=== PATIENT | female | born 1975 | race Hispanic/Latino ===

== ENCOUNTER 2017-09-09 16:28 | Observation (INO) | payer OTHER ==
[~2017-09-09] VITALS: Ht 165.1 cm; Wt 124.3 kg
[~2017-09-09 16:28] MED LIST: IBUP-2077 PO
[2017-09-09 17:29] LABS: APPEARANCE,URINE Clear (CLEAR); BILIRUBIN,URINE Negative (NEGATIVE); COLOR,URINE Yellow (YELLOW); GLUCOSE, URINE (UA) Negative (NEGATIVE); KETONES,URINE Negative (NEGATIVE); LEUKOCYTE ESTERASE ,URINE Small (NEGATIVE); NITRATE,URINE Negative (NEGATIVE); OCCULT BLOOD,URINE Negative (NEGATIVE); PH,URINE 7.5 (5.0-8.0); PROTEIN,URINE Negative (NEGATIVE); UROBILINOGEN,URINE 0.2 mg/dL (0.2-1.0)
[2017-09-09 17:29] LABS: HEMATOCRIT 38.3 % (36-48); MEAN CORPUSCULAR HEMOGLOBIN 27.1 pg (27.0-33.0); MEAN CORPUSCULAR HGB CONC 33.7 g/dL (32.0-36.0); MEAN CORPUSCULAR VOLUME 80.5 fL (79-99); PLATELET COUNT (AUTO) 232 K/uL (130-400); RED BLOOD CELL COUNT(AUTO) 4.76 MIL/uL (4.00-5.50); RED CELL DISTRIBUTION WIDTH 17.2 % (11.0-15.5); WHITE BLOOD COUNT (AUTO) 9.4 K/uL (4.8-10.8)
[2017-09-09 17:38] LABS: CREATININE 0.6 mg/dL (0.5-1.5); INR 0.89 (0.85-1.15); PARTIAL THROMBOPLASTIN TIME 31.7 SEC (26.3-35.5); PROTHROMBIN TIME 9.4 SEC (9.6-11.6)
[2017-09-09 17:42] LABS: ALBUMIN 2.8 g/dL (3.5-5.0); BILIRUBIN,TOTAL 0.3 mg/dL (0.2-1.0); TOTAL PROTEIN, SERUM 8.4 g/dL (6.0-8.3); URIC ACID 3.2 mg/dL (2.6-7.2)
[2017-09-09] MEDS: LACTATED RINGERS 1000ML 1,000 ML IV PRN ×2 (17:52→23:51)
[2017-09-09 18:03] VITALS: BP 132/93
[2017-09-09 18:05] LABS: RBC,URINE 0-1 /HPF (0-1)
[2017-09-09 18:06] LABS: BACTERIA,URINE Few /HPF (None Seen); SQUAMOUS EPITHELIAL CELL,UR Few /HPF (0-2)
[2017-09-09] MEDS: CELESTONE SOLUSPAN 6 MG/ML 5ML VIAL IM SCH (19:21)
[2017-09-10] MEDS ORDERED: ENOXAPARIN SODIUM 60 MG/0.6 ML SQ SCH (09:15)
[2017-09-10] MEDS ORDERED: PRENATAL VITAMIN RX TABLET PO SCH (09:15)
[2017-09-10] MEDS ORDERED: LABETALOL HCL 100 MG TABLET ONE (10:07)
[2017-09-10] MEDS ORDERED: ENOXAPARIN SODIUM 40 MG/0.4 ML SYRINGE SQ SCH (10:15)
[2017-09-10] MEDS: CELESTONE SOLUSPAN 6 MG/ML 5ML VIAL IM SCH (17:25)
[2017-09-10 18:21] LABS: COLLECTION PERIOD,URINE 24 HR; TOTAL VOLUME 24HRS,URINE 1900 mL
[2017-09-10 18:26] LABS: TPROTEIN TIMED,URINE 16 mg/dL; TPROTEIN U,24HR CALC 304 mg/24HR (0-165)
[2017-09-10] MEDS ORDERED: LABETALOL HCL 100 MG TABLET PO SCH (21:00)
[2017-09-11 10:22] LABS: HEPATITIS Bs ANTIGEN SCREEN P Negative (Negative)
== END 2017-09-10 17:50 | disposition home or self-care (01) ==
LOC: LDH 16:28 → WSH 23:20
PROVIDERS: ADMIT Obstetrics & Gynecology; ATTEND Obstetrics & Gynecology
DX: O13.3 Gestational [pregnancy-induced] hypertension without significant proteinuria, third trimester (principal); O24.419 Gestational diabetes mellitus in pregnancy, unspecified control; Z3A.31 31 weeks gestation of pregnancy
CPT/HCPCS: 36415; 80053; 81001; 84156; 84550; 85027; 85384; 85610; 85730; 86592; 86850; 86900; 86901; 87340; 96360; 96361 ×5; 96372 ×2; G0378 ×26; J0702 ×3; J1650; J7120

== ENCOUNTER 2017-09-30 17:33 | Observation (INO) | payer OTHER ==
[~2017-09-30] VITALS: Ht 165.1 cm; Wt 128.8 kg
[2017-09-30] MEDS ORDERED: LACTATED RINGERS 1000ML 1,000 ML IV PRN (18:04)
[2017-09-30 18:13] LABS: HEMATOCRIT 33.3 % (36-48); MEAN CORPUSCULAR HEMOGLOBIN 27.4 pg (27.0-33.0); MEAN CORPUSCULAR HGB CONC 34.1 g/dL (32.0-36.0); MEAN CORPUSCULAR VOLUME 80.3 fL (79-99); PLATELET COUNT (AUTO) 188 K/uL (130-400); RED BLOOD CELL COUNT(AUTO) 4.14 MIL/uL (4.00-5.50); RED CELL DISTRIBUTION WIDTH 17.2 % (11.0-15.5); WHITE BLOOD COUNT (AUTO) 8.2 K/uL (4.8-10.8)
[2017-09-30 18:14] LABS: APPEARANCE,URINE Clear (CLEAR); BILIRUBIN,URINE Negative (NEGATIVE); COLOR,URINE Yellow (YELLOW); GLUCOSE, URINE (UA) Negative (NEGATIVE); KETONES,URINE Negative (NEGATIVE); LEUKOCYTE ESTERASE ,URINE Small (NEGATIVE); NITRATE,URINE Negative (NEGATIVE); OCCULT BLOOD,URINE Negative (NEGATIVE); PH,URINE 6.5 (5.0-8.0); PROTEIN,URINE Negative (NEGATIVE)
[2017-09-30 18:24] LABS: CREATININE 0.6 mg/dL (0.5-1.5); INR 0.87 (0.85-1.15); PARTIAL THROMBOPLASTIN TIME 29.6 SEC (26.3-35.5); POTASSIUM 3.8 mmol/L (3.5-5.1); PROTHROMBIN TIME 9.2 SEC (9.6-11.6)
[2017-09-30 18:28] LABS: ALBUMIN 2.5 g/dL (3.5-5.0); BILIRUBIN,TOTAL 0.3 mg/dL (0.2-1.0); TOTAL PROTEIN, SERUM 7.3 g/dL (6.0-8.3); URIC ACID 3.9 mg/dL (2.6-7.2)
[2017-09-30 19:20] LABS: BACTERIA,URINE Few /HPF (None Seen); RBC,URINE 0-1 /HPF (0-1)
[2017-10-02 08:20] LABS: HEPATITIS Bs ANTIGEN SCREEN P Negative (Negative)
== END 2017-09-30 21:03 | disposition home or self-care (01) ==
LOC: LDH 17:33
PROVIDERS: ADMIT Obstetrics & Gynecology; ATTEND Obstetrics & Gynecology
DX: O22.43 Hemorrhoids in pregnancy, third trimester (principal); O26.893 Other specified pregnancy related conditions, third trimester; R06.02 Shortness of breath; R05 Cough; Z86.32 Personal history of gestational diabetes; Z3A.35 35 weeks gestation of pregnancy
CPT/HCPCS: 36415; 76805; 80053; 81001; 84550; 85027; 85384; 85610; 85730; 86592; 86850; 86900; 86901; 87340; 96360; 96361; G0378

== ENCOUNTER 2017-10-12 18:14 | Inpatient (IN) | payer OTHER ==
[~2017-10-12] VITALS: Ht 165.1 cm; Wt 129.7 kg
[2017-10-12] MEDS ORDERED: LACTATED RINGERS 500 ML 500 ML IV PRN (19:00)
[2017-10-12] MEDS ORDERED: AMPICILLIN 2GM+NS 100ML 100 ML IV SCH (19:00)
[2017-10-12] MEDS ORDERED: ROPIVACAINE 0.2%200ML EPIDURAL 200 ML EP SCH (19:00)
[2017-10-12] MEDS ORDERED: NALOXONE HCL 0.4 MG/1 ML ML IV PRN (19:00)
[2017-10-12] MEDS ORDERED: AMPICILLIN 1GM+NS 50ML 50 ML IV SCH (19:00)
[2017-10-12] MEDS ORDERED: EPHEDRINE SULFATE 50 MG/ML AMPULE IVP PRN (19:00)
[2017-10-12] MEDS ORDERED: OXYTOCIN-LR 20 UNITS/1000 ML 1,000 ML IV SCH (19:00)
[2017-10-12 19:45] VITALS: BP 168/84
[2017-10-12] MEDS: LACTATED RINGERS 1000ML 1,000 ML IV PRN (20:30)
[2017-10-12] MEDS: AMPICILLIN 2GM+NS 100ML 100 ML IV SCH (20:30)
[2017-10-12 20:32] LABS: APPEARANCE,URINE SL CLOUDY (CLEAR); BILIRUBIN,URINE NEGATIVE (NEGATIVE); COLOR,URINE YELLOW (YELLOW); GLUCOSE, URINE (UA) NEGATIVE (NEGATIVE); KETONES,URINE NEGATIVE (NEGATIVE); LEUKOCYTE ESTERASE ,URINE TRACE (NEGATIVE); NITRATE,URINE NEGATIVE (NEGATIVE); OCCULT BLOOD,URINE NEGATIVE (NEGATIVE); PROTEIN,URINE NEGATIVE (NEGATIVE); UROBILINOGEN,URINE 0.2 mg/dL (0.2-1.0)
[2017-10-12] MEDS: DINOPROSTONE 10 MG VAGINAL SUPP VG SCH (20:38)
[2017-10-12 20:43] LABS: HEMATOCRIT 35.5 % (36-48); MEAN CORPUSCULAR HEMOGLOBIN 27.1 pg (27.0-33.0); MEAN CORPUSCULAR HGB CONC 33.4 g/dL (32.0-36.0); MEAN CORPUSCULAR VOLUME 81.2 fL (79-99); PLATELET COUNT (AUTO) 212 K/uL (130-400); RED BLOOD CELL COUNT(AUTO) 4.38 MIL/uL (4.00-5.50); RED CELL DISTRIBUTION WIDTH 17.5 % (11.0-15.5)
[2017-10-12 20:55] LABS: CREATININE 0.5 mg/dL (0.5-1.5); POTASSIUM 4.2 mmol/L (3.5-5.1)
[2017-10-12 20:56] LABS: INR 0.87 (0.85-1.15); PARTIAL THROMBOPLASTIN TIME 28.6 SEC (26.3-35.5); PROTHROMBIN TIME 9.2 SEC (9.6-11.6)
[2017-10-12 21:00] LABS: ALBUMIN 2.5 g/dL (3.5-5.0); BILIRUBIN,TOTAL 0.2 mg/dL (0.2-1.0); TOTAL PROTEIN, SERUM 7.3 g/dL (6.0-8.3); URIC ACID 3.5 mg/dL (2.6-7.2)
[2017-10-12 21:04] LABS: AMORPHOUS SEDIMENT,UR Few /LPF (None Seen); BACTERIA,URINE Few /HPF (None Seen); RBC,URINE 0-1 /HPF (0-1); SQUAMOUS EPITHELIAL CELL,UR Few /HPF (0-2); WBC,URINE 0-1 /HPF (0-1); YEAST,URINE BUDDING Rare /HPF (None Seen)
[2017-10-12 21:05] LABS: MUCUS,URINE Rare LPF (None Seen)
[2017-10-12] MEDS ORDERED: METO100T14 PO (23:08)
[2017-10-12] MEDS ORDERED: ENOX40DI8 SQ (23:08)
[2017-10-12] MEDS ORDERED: PREN1CAP26 PO (23:08)
[2017-10-12] MEDS: AMPICILLIN 1GM+NS 50ML 50 ML IV SCH (23:53)
[2017-10-13] MEDS: LACTATED RINGERS 1000ML 1,000 ML IV PRN ×2 (01:09→23:49)
[2017-10-13] MEDS: AMPICILLIN 1GM+NS 50ML 50 ML IV SCH ×6 (04:31→23:52)
[2017-10-13] MEDS ORDERED: LACTATED RINGERS 1000ML 1,000 ML IV ONE (07:29)
[2017-10-13] MEDS ORDERED: OXYTOCIN 10 USP UNITS/ML ONE (07:29)
[2017-10-13] MEDS: OXYTOCIN 10 USP UNITS/ML 20 UNIT in LACTATED RINGERS 1000ML 1,000 ML IV PRN (08:10)
[2017-10-13] MEDS ORDERED: DINOPROSTONE 10 MG VAGINAL SUPP VG ONE (17:30)
[2017-10-13] MEDS: DINOPROSTONE 10 MG VAGINAL SUPP VG SCH (19:00)
[2017-10-13] MEDS: AMPICILLIN 2GM+NS 100ML 100 ML IV SCH (20:30)
[2017-10-13] MEDS ORDERED: METOPROLOL TARTRATE 50 MG TAB PO SCH (21:00)
[2017-10-13] MEDS: METOPROLOL TARTRATE 50 MG TAB PO SCH (21:05)
[2017-10-13] MEDS ORDERED: METOPROLOL TARTRATE 50 MG TAB PO ONE (23:45)
[2017-10-14] MEDS ORDERED: DiphenhydrAMINE HCL 50 MG/ML VIAL ONE (01:04)
[2017-10-14] MEDS: DiphenhydrAMINE HCL 50 MG/ML VIAL IM SCH (01:15)
[2017-10-14] MEDS: DiphenhydrAMINE HCL 50 MG/ML VIAL IV SCH (02:30)
[2017-10-14] MEDS: AMPICILLIN 1GM+NS 50ML 50 ML IV SCH ×3 (04:12→20:02)
[2017-10-14] MEDS ORDERED: OXYTOCIN 10 USP UNITS/ML ONE ×2 (04:42→17:34)
[2017-10-14] MEDS ORDERED: LACTATED RINGERS 1000ML 1,000 ML IV ONE (04:42)
[2017-10-14] MEDS: OXYTOCIN 10 USP UNITS/ML 20 UNIT in LACTATED RINGERS 1000ML 1,000 ML IV PRN (05:17)
[2017-10-14 06:17] LABS: HEPATITIS Bs ANTIGEN SCREEN P Negative (Negative)
[2017-10-14] MEDS: METOPROLOL TARTRATE 50 MG TAB PO SCH ×3 (09:15→21:10)
[2017-10-14] MEDS ORDERED: CALDOLOR 800MG+NS 250ML 250 ML IV ONE (10:42)
[2017-10-14] MEDS ORDERED: CEFAZOLIN SODIUM 1 GM VIAL ONE (10:43)
[2017-10-14] MEDS: BUTORPHANOL TARTRATE 2 MG/ML IVP PRN ×2 (13:20→16:19)
[2017-10-15] MEDS: AMPICILLIN 1GM+NS 50ML 50 ML IV SCH ×2 (00:04→20:00)
[2017-10-15] MEDS: DiphenhydrAMINE HCL 50 MG/ML VIAL IV SCH (01:15)
[2017-10-15] MEDS ORDERED: SENSORCAINE/DEXT/PF 0.75% 2ML AMP IJ ONE (01:54)
[2017-10-15] MEDS ORDERED: METHYLERGONOVINE MALEATE 0.2 MG/1 ML ML ONE (02:35)
[2017-10-15] MEDS ORDERED: METHYLERGONOVINE MALEATE 0.2 MG/1 ML ML IM ONE (02:40)
[2017-10-15] MEDS ORDERED: CALDOLOR 800MG+NS 250ML 250 ML IV PRN (02:45)
[2017-10-15] MEDS ORDERED: CEFAZOLIN SODIUM 1 GM VIAL IVP PRN (02:45)
[2017-10-15 02:50] LABS: BASOPHILS % (AUTO) 0.3 % (0.0-5.0); EOSINOPHILS % (AUTO) 0.1 % (0.0-8.0); HEMATOCRIT 29.6 % (36-48); LYMPHOCYTES % (AUTO) 10.5 % (21.0-51.0); MEAN CORPUSCULAR HEMOGLOBIN 27.8 pg (27.0-33.0); MEAN CORPUSCULAR HGB CONC 34.8 g/dL (32.0-36.0); MEAN CORPUSCULAR VOLUME 79.9 fL (79-99); MONOCYTES % (AUTO) 5.7 % (3.0-13.0); NEUTROPHILS % (AUTO) 83.4 % (40.0-77.0); PLATELET COUNT (AUTO) 157 K/uL (130-400); RED CELL DISTRIBUTION WIDTH 17.1 % (11.0-15.5); WHITE BLOOD COUNT (AUTO) 9.6 K/uL (4.8-10.8)
[2017-10-15] MEDS ORDERED: OXYTOCIN 10 USP UNITS/ML ONE ×2 (03:36→09:01)
[2017-10-15] MEDS ORDERED: OXYTOCIN-LR 20 UNITS/1000 ML 1,000 ML IV PRN (03:54)
[2017-10-15] MEDS ORDERED: DEXTROSE 5 %-0.45 % NACL 1,000 ML IV PRN (04:00)
[2017-10-15] MEDS ORDERED: PROMETHAZINE HCL 25 MG/ML 1ML AMPULE IM PRN (04:00)
[2017-10-15] MEDS ORDERED: SODIUM CHLORIDE 0.9% 10 ML VIAL IVP PRN (04:00)
[2017-10-15] MEDS ORDERED: MEPERIDINE-PF 75 MG/ML SYG IM PRN (04:00)
[2017-10-15 07:32] LABS: HEMATOCRIT 32.3 % (36-48)
[2017-10-15] MEDS ORDERED: IBUPROFEN 800 MG TAB ONE (09:01)
[2017-10-15] MEDS ORDERED: LACTATED RINGERS 1000ML 1,000 ML IV ONE (09:01)
[2017-10-15] MEDS: METOPROLOL TARTRATE 50 MG TAB PO SCH ×2 (09:10→21:10)
[2017-10-15 09:20] VITALS: BP 137/84
[2017-10-15] MEDS ORDERED: BISACODYL 10 MG SUPP.RECT RC PRN (11:15)
[2017-10-15] MEDS ORDERED: LANOLIN 30GM OINTMENT TP PRN (11:15)
[2017-10-15] MEDS ORDERED: IBUPROFEN 600 MG TABLET PO PRN (11:15)
[2017-10-15 11:23] VITALS: BP 140/78
[2017-10-15] MEDS: ACETAMINOPHEN-CODEINE 300/30MG TAB PO PRN (13:53)
[2017-10-15 15:54] VITALS: BP 127/69
[2017-10-15] MEDS: DIPH,PERTUSS(ACELL),TET VAC/PF 0.5 ML VIAL IM SCH (17:24)
[2017-10-15 20:04] VITALS: BP 119/54
[2017-10-15] MEDS: SIMETHICONE 80 MG TAB.CHEW PO PRN (21:10)
[2017-10-15] MEDS: DOCUSATE SODIUM 100 MG CAP PO SCH (21:10)
[2017-10-16 00:59] VITALS: BP 119/72
[2017-10-16] MEDS: DiphenhydrAMINE HCL 50 MG/ML VIAL IM SCH ×2 (01:15→03:00)
[2017-10-16] MEDS: DiphenhydrAMINE HCL 50 MG/ML VIAL IV SCH (01:15)
[2017-10-16] MEDS: AMPICILLIN 1GM+NS 50ML 50 ML IV SCH ×2 (02:58)
[2017-10-16] MEDS: DIPH,PERTUSS(ACELL),TET VAC/PF 0.5 ML VIAL IM SCH (02:59)
[2017-10-16] MEDS: IBUPROFEN 800 MG TAB PO SCH ×3 (03:59→20:07)
[2017-10-16 04:49] VITALS: BP 90/60
[2017-10-16 06:25] LABS: HEMATOCRIT 25.2 % (36-48); MEAN CORPUSCULAR HGB CONC 35.9 g/dL (32.0-36.0); MEAN CORPUSCULAR VOLUME 80.9 fL (79-99); PLATELET COUNT (AUTO) 145 K/uL (130-400); RED BLOOD CELL COUNT(AUTO) 3.11 MIL/uL (4.00-5.50); RED CELL DISTRIBUTION WIDTH 17.6 % (11.0-15.5); WHITE BLOOD COUNT (AUTO) 8.1 K/uL (4.8-10.8)
[2017-10-16 07:52] VITALS: BP 131/83
[2017-10-16] MEDS: DOCUSATE SODIUM 100 MG CAP PO SCH ×2 (09:24→20:06)
[2017-10-16] MEDS: SIMETHICONE 80 MG TAB.CHEW PO PRN ×4 (09:24→20:54)
[2017-10-16] MEDS: METOPROLOL TARTRATE 50 MG TAB PO SCH ×2 (09:24→20:54)
[2017-10-16 11:51] VITALS: BP 140/70
[2017-10-16 15:57] VITALS: BP 140/89
[2017-10-16 19:35] VITALS: BP 128/78
[2017-10-17 00:50] VITALS: BP 137/81
[2017-10-17] MEDS: IBUPROFEN 800 MG TAB PO SCH (03:59)
[2017-10-17 05:11] VITALS: BP 134/89
[2017-10-17 07:39] VITALS: BP 134/88
[2017-10-17] MEDS: SIMETHICONE 80 MG TAB.CHEW PO PRN (09:01)
[2017-10-17] MEDS: DOCUSATE SODIUM 100 MG CAP PO SCH (09:02)
[2017-10-17] MEDS: METOPROLOL TARTRATE 50 MG TAB PO SCH (09:02)
[2017-10-17] MEDS: ACETAMINOPHEN-CODEINE 300/30MG TAB PO PRN (09:08)
[2017-10-17 11:38] VITALS: BP 135/79
== END 2017-10-17 15:35 | disposition home or self-care (01) | DRG 765 ==
LOC: LDH 18:14 → WSH 10-15 09:20
PROVIDERS: ADMIT Obstetrics & Gynecology; ATTEND Obstetrics & Gynecology
PROC: 3E0234Z Introduction of Serum, Toxoid and Vaccine into Muscle, Percutaneous Approach (ICD-10-PCS; 2017-10-15)
PROC: 3E0134Z Introduction of Serum, Toxoid and Vaccine into Subcutaneous Tissue, Percutaneous Approach (ICD-10-PCS; 2017-10-15)
PROC: 10D00Z1 Extraction of Products of Conception, Low, Open Approach (ICD-10-PCS; principal; 2017-10-15 01:45)
DX: O62.1 Secondary uterine inertia (principal); E72.12 Methylenetetrahydrofolate reductase deficiency; O16.4 Unspecified maternal hypertension, complicating childbirth; O72.1 Other immediate postpartum hemorrhage; O24.420 Gestational diabetes mellitus in childbirth, diet controlled; Z37.0 Single live birth; Z3A.37 37 weeks gestation of pregnancy; O99.284 Endocrine, nutritional and metabolic diseases complicating childbirth; Z23 Encounter for immunization; O67.8 Other intrapartum hemorrhage
CPT/HCPCS: 36415; 59510; 80053; 81001; 84550; 85014; 85018; 85025; 85027; 85384; 85610; 85730; 86592; 86850; 86900; 86901; 87340; 90715; A4314; A4606; J0290; J0595; J0690; J1200; J1741; J2210; J2590; J3490; J7120